=== PATIENT | female | born 1970 | race Caucasian/White ===

== ENCOUNTER 2016-05-12 12:34 | Inpatient (IN) | payer OTHER ==
[~2016-05-12] VITALS: Ht 160 cm; Wt 67.0 kg
[~2016-05-12 12:34] MED LIST: AMOX-351 PO; CETI1TAB14 PO; FLUO40CA7 PO
--- OUTSIDE RECORDS SUMMARY | 2016-05-12 12:38 | XMS REPORT | Continuity of Care Document ---
Author Author [facility] Organization [facility] Address Unknown Phone Unavailable Support Name Relationship Address Phone BIJAL KENNEDY APRN Caregiver [address] [place] [address] Unavailable TATO WALLACE II, MD Caregiver [address] GARCIA [address] [place] [id number] Unavailable CARLA VILLARREAL Next Of Kin [address] [place] [address] Insurance Providers Guarantor Jared Villarreal Address [address] [place] [address] Email DENIED/NO TO PT PORTAL Payer [facility] Policy Number [id number] Subscriber's Name Carla Villarreal Alicia Relationship 01 Spouse Group Number [id number] Chief Complaint and Reason for Visit Chief Complaint Cough,Fever,Flu,URI Reason for Visit Acute sinusitis Problems Active Problems Medical Problem Onset Date Status Headache Unknown Acute Past Problems Medical Problem Onset Date Acute sinusitis Unknown Diarrhea in adult patient Unknown Nausea Unknown Viral gastroenteritis Unknown Medications Current Home Medications Medication Dose Units Route Directions Days Qty Instructions Start Date Amoxicillin/Potassium Clav (Augmentin 875-125 Tablet) 1 Each Tablet 1 Tab Oral Twice A Day 7 Tablet TAKE WITH MEALS Supervising physician Dr. Lennox Kumar [facility] [address] 05/07/16 Cetirizine Hcl/Pseudoephedrine (Zyrtec-D Tablet) 1 Each Tab.er.12h 1 Tab Oral Daily 11/19/14 Fluoxetine Hcl (Prozac) 40 Mg Capsule 1 Cap Oral Daily 11/19/14 Social History Social History Problem Response Recorded Date/Time Onset Date Status Hx Substance Use No 11/19/2014 8:45pm Not Applicable Not Applicable Hx Alcohol Use No 11/19/2014 8:45pm Not Applicable Not Applicable Hospital Discharge Instructions No hospital discharge instructions. Plan of Care Discharge Date 05/07/16 3:13pm Disposition 01 DISCHARGED HOME, SELF-CARE Condition at Discharge Stable Instructions/Education Provided Sinusitis (ED) Prescriptions See Medication Section Referrals TATO WALLACE II, MD Address: [address] [place] [id number] Additional Instructions/Education Sudafed as directed on the box Flonase nasal spray one spray in each nostril daily Functional Status No functional status results. Allergies, Adverse Reactions, Alerts No known allergies. Immunizations Query Response on File Recorded Date/Time DTaP Vaccine History YES 05/07/16 2:51pm Influenza Vaccine Hx NO 05/07/16 2:51pm Tetanus Diptheria Vaccine History YES 05/07/16 2:51pm Vital Signs Acute Vital Signs Vital Response Date/Time Temperature (Fahrenheit) 99.0 deg F (96.8 - 99.1) 05/07/2016 2:46pm Temperature (Calculated Celsius) 37.66182 degrees C (36.0 - 37.3) 05/07/2016 2:46pm Pulse Rate (adult) 93 bpm (60 - 100) 05/07/2016 2:46pm Respiratory Rate 20 breaths/min (10 - 20) 05/07/2016 2:46pm O2 Sat by Pulse Oximetry 99 % (90 - 100) 05/07/2016 2:46pm Blood Pressure 107/70 mm Hg 05/07/2016 2:46pm Height (Inches) 64.50 inches 05/07/2016 2:46pm Weight (Kilograms) 64.400 kg 05/07/2016 2:46pm Body Mass Index (BMI) 23.0 05/07/2016 2:46pm Results Laboratory Results Test Name Result Units Flags Reference Collection Date/Time Result Date/ Time Comments Influenza Type A Antigen NEGATIVE NEGATIVE 04/02/2016 1:14pm 2016 3:44pm Negative for Flu A protein antigen. Assay sensitivity is 90%. Influenza Type B Antigen NEGATIVE NEGATIVE 04/02/2016 1:14pm 2016 3:44pm Negative for Flu B protein antigen. Assay sensitivity is 90%. Procedures No known history of procedures. Encounters Encounter Location Arrival/Admit Date Discharge/Depart Date Attending Provider Departed Emergency Room [facility] 05/07/16 2:17pm 05/07/16 3: 13pm BIJAL KENNEDY APRN Departed Emergency Room [facility] 04/02/16 12:55pm 04/02/16 1: 32pm JOYCE MANUEL APRN Recent Diagnosis
--- NOTE | 2016-05-12 13:00 | NUR ---
STATUS PATIENT STATES "MY HANDS FEEL FUNNY". PATIENT IS NOTED TO BE BREATHING AT 25 BREATHS PER MIN AND REAL DEEP. PATIENT IS EDUCATED ON SLOWING DOWN BREATHING.
[2016-05-12] MEDS ORDERED: ONDA-55 PO (13:04)
[2016-05-12] MEDS ORDERED: BENZ200C36 PO (13:04)
[2016-05-12] MEDS ORDERED: TRIA10.82 EA NOSTRIL (13:06)
[2016-05-12] MEDS ORDERED: PSEU120T64 PO (13:06)
--- NOTE | 2016-05-12 13:27 | NUR ---
STATUS PATIENT VOMITED 150 ML OF YELLOW BILE. STATES IT RELIEVES THE PAIN SOMEWHAT. EDUCATED PATIENT ON WAIT TIMES.
--- NOTE | 2016-05-12 13:44 | NUR ---
PROVIDER DR NICK IN TO SEE PATIENT.
[2016-05-12] MEDS ORDERED: NORMAL SALINE 1,000 ML IV ONE (13:53)
[2016-05-12] MEDS ORDERED: G.I. COCKTAIL 30ml PO ONE (14:00)
[2016-05-12] MEDS ORDERED: KETOROLAC 30mg/ml INJECTION IV ONE (14:00)
[2016-05-12] MEDS ORDERED: ONDANSETRON 4mg/2ml INJECTION IV ONE (14:00)
[2016-05-12] MEDS ORDERED: FAMOTIDINE 20 MG TABLET PO ONE (14:00)
[2016-05-12 14:12] LABS: BASOPHILS # (AUTO) 0.1 T/MM3 (0-0.2); BASOPHILS % (AUTO) 0.4 % (0-2); EOSINOPHILS % (AUTO) 0.3 % (0-4); HCT - HEMATOCRIT 41.6 % (36-46); HGB - HEMOGLOBIN 14.2 GM/DL (12-16); IMMATURE GRANULOCYTE # (AUTO) 0.03 T/MM3 (0.00-0.03); IMMATURE GRANULOCYTE % (AUTO) 0.2 % (0.0-0.5); LYMPHOCYTES # (AUTO) 1.5 T/MM3 (1-4.8); LYMPHOCYTES % (AUTO) 11.5 % (23-45); MEAN CORPUSCULAR HGB 30.5 UUG (26-34); MEAN CORPUSCULAR HGB CONC(MCHC 34.1 GM/DL (31-37); MEAN CORPUSCULAR VOLUME 89.3 UM3 (80-100); MEAN PLATELET VOLUME 8.6 UM3 (9.4-12.4); MONOCYTES # (AUTO) 0.7 T/MM3 (0-0.8); MONOCYTES % (AUTO) 5.6 % (0-9.0); NEUTROPHILS #(AUTO)-ABSOLUTE 10.3 T/MM3 (1.8-7.7); RED BLOOD COUNT 4.66 M/MM3 (4.00-5.20); WBC - WHITE BLOOD COUNT 12.6 T/MM3 (4.5-11.0)
--- NOTE | 2016-05-12 14:13 | NUR ---
TO XRAY PER CART.
[2016-05-12 14:19] LABS: ALBUMIN/GLOBULIN RATIO 1.1 RATIO (1.1-2.2); ALKALINE PHOSPHATASE 109 U/L (38-126); ALT (SGPT) 25 U/L (9-52); ANION GAP 15 MEQ/L (5-15); AST (SGOT) 19 U/L (14-36); BUN/CREATININE RATIO 13 RATIO (6-26); CALCIUM 9.4 MG/DL (8.4-10.2); CHLORIDE 105 MEQ/L (98-107); CO2 - CARBON DIOXIDE 23 MEQ/L (22-30); CREATININE 0.6 MG/DL (0.7-1.2); GLOMERULAR FILTRATION RATE 109; GLUCOSE 104 MG/DL (65-110); LIPASE 119 U/L (23-300); SODIUM 143 MEQ/L (134-144); TOTAL PROTEIN 7.5 G/DL (6.3-8.2)
--- NOTE | 2016-05-12 14:27 | NUR ---
BACK FROM XRAY
[2016-05-12] MEDS ORDERED: FAMOTIDINE 20 MG in NORMAL SALINE 50 ML IV ONE (14:45)
--- NOTE | 2016-05-12 14:45 | DI ---
EXAM: KUB W/UPRIGHT COMPARISON: None available. HISTORY: ITS.REASON: abd pain . FINDINGS: The lung bases are clear. The visceral knowledge are unremarkable. Moderate amount stool and air seen throughout the colon. The gaseous distention of multiple loops of what may be large and small bowel. Surgical clips are seen in the right upper quadrant likely from prior cholecystectomy. Calcification is seen projecting over the right bladder which may represent a phlebolith. IMPRESSION: 1. Moderate amount stool seen within the colon with some air-filled loops of nondilated large and small bowel which may represent an ileus. Clinical correlation is suggested. 2. Two mm calcification is seen projecting over the right bladder which may represent a phlebolith rather than a distal ureteral stone. LOCATION OF DICTATION: [facility] [place] .
[2016-05-12 15:01] LABS: BLOOD, URINE NEGATIVE (NEGATIVE); COLOR,URINE YELLOW (YELLOW); LEUKOCYTE ESTERASE ,URINE NEGATIVE (NEGATIVE); NITRITE,URINE NEGATIVE (NEGATIVE); UROBILINOGEN,URINE 0.2 EU/DL (NORMAL)
[2016-05-12] MEDS ORDERED: SALINE FLUSH 10ml SYRINGE ONE (15:18)
[2016-05-12] MEDS ORDERED: IOHEXOL 300 MG/ML 75ml INJECTION ONE (15:18)
[2016-05-12] MEDS ORDERED: NORMAL SALINE 100 ML ONE (15:18)
--- NOTE | 2016-05-12 16:06 | DI ---
Indication: ITS.REASON: vomiting, abd pain, elevated wbc PROCEDURE: CT ABD/PELVIS W/CONTRAST ONLY: Encounter: Initial Comparison: None Technique: Axial CT images were performed through the abdomen and pelvis after the administration of intravenous contrast. Coronal and sagittal two-dimensional reformats. Automated Exposure Control and Iterative Reconstruction dose reducing techniques were utilized. Contrast: Omnipaque 300 74 mL Findings: The lung bases are clear. The liver is normal. Gallbladder is surgically absent. The spleen, pancreas and adrenal glands are within normal limits. The kidneys are normal. No obvious abdominal or pelvic lymphadenopathy. Bladder is unremarkable. Uterus is grossly normal. Small to moderate amount of free pelvic fluid. Colon is decompressed. There are dilated fluid-filled bowel loops seen in the abdomen and pelvis measuring up to 3.5 cm in diameter. There is transition to nondilated small bowel in the ileum of the right abdomen best seen on coronal image #16 with a somewhat swirling appearance of the bowel loops. Impression: High-grade or complete small bowel obstruction in the distal ileum that could be due to an internal hernia or adhesion. Surgical consultation is recommended. .
--- NOTE | 2016-05-12 16:06 | NUR ---
STATUS PATIENT IS RESTING IN BED. PAIN IS RATED "3/10 AND IS BEARABLE". NO COMPLAINTS NOTED. CALL LIGHT WITHIN REACH.
--- NOTE | 2016-05-12 16:35 | NUR ---
PROVIDER DR NICK IN WITH DISPOSITION.
[2016-05-12] MEDS ORDERED: MORPHINE SULFATE 2 MG SYRINGE IV ONE (16:45)
--- NOTE | 2016-05-12 16:51 | ERPDOC ---
Departure Disposition Decision Date: May 12, 2016 Disposition Decision Time: 16:53 Disposition: 02 TO [facility] Impression Impression Impression: Primary Impression: Small bowel obstruction Additional Impression: Dehydration Severity: Severe Condition: Stable Seen By: Physician only Referrals: TATO WALLACE II, MD (Family) Problems/Meds/Labs Reviewed?: Yes Medications reviewed and manag: Yes Follow up care ordered?: Yes Mental Status: Alert, Oriented HPI - Abdominal Pain General Chief Complaint: Abdominal Pain Stated Complaint: STOMACHE PAINS RADIATES TO BACK/VOMITNG Time Seen by Provider: 13:41 HPI - Abdominal Pain Initial Comments 45-year-old female with 3 days of vomiting. She has had abdominal pain building for a few days before that. Rates her pain as 8 out of 10 today. Has not had fever, states pain from right back around to right lower abdomen. Vomited multiple times today, unable to keep liquids down. Last meal was last night, incomplete and she vomited. Last fluid was prior to coming to ER today, approximately 4 hours ago. She has had gallbladder and surgery. Gallbladder was in 1992. She is uncertain of the physician. Allergies: Coded Allergies: No Known Allergies (Unverified , 05/12/16) Past History Past Medical History Neurological: headaches, migraines Psychological: anxiety Surgical History General: gallbladder Reproductive/: D&C, , tubal ligation Social History Substance Use Type: does not use Alcohol Intake: none Sexuality: male partner Record Review Pertinent history updated: Yes Review of Systems GI Upper Abdomen: see HPI Lower Abdomen: see HPI All other Systems All Other Systems: Reviewed and Negative Physical Exam General General Nourishment: well nourished, well developed, appears stated age Distress Description Patient is lying with her head on the foot of the bed on initial exam. She complains of right lower abdominal pain Vitals and Pain First Documented Vital Signs Date Time Temp Pulse Resp B/P Pulse Ox O2 Delivery O2 Flow Rate FiO2 05/12/16 12:35 97.8 77 16 150/67 99 Room Air Weight: Kilograms: 63.750 Height (feet): 5 Height (inches): 3.00 Triage Pain Scale: Normal Exams: Head: Normocephalic w/o trauma Neck: Full range of motion, without adenopathy, JVD, bruits or thyromegaly Chest/Resp: Clear all resendez, with good airflow, and symmetry bilaterally CV: Regular rate and rhythm, without murmur or gallop, Pulses 2+ all extremities, capillary refill, <2 seconds all ext., no pedal edema noted Neurologic: Patient is alert, and oriented, cranial nerves, motor/sensory/ cerebellar, exams w/o gross deficits, to observation Psychiatric: Patient exhibits, appropriate attention, emotion and affect Abdomen (brief) Comments Bowel sounds slightly hyperactive, slightly distended abdomen. No masses palpable. Tender to palpation right lower quadrant. Differential Diagnoses Considering: Appendicitis, Biliary Colic, Bowel Obstruction, Constipation, Crohn's, Diverticulitis, Gastroenteritis, GI Bleed, Ileus, Pancreatitis, Pyelonephritis, Ulcer, Ulcerative Colitis, UTI, Volvulus Progress Results/Orders Orders Procedure Category Date Status Time Iv Lock (Ed Only) EDM 05/12/16 Transmitted 13:53 Cbc W/Auto LAB 05/12/16 Complete Diff-Reflex Manual 13:53 Cmp - Comprehensive LAB 05/12/16 Complete Metabolic 13:53 Lipase LAB 05/12/16 Complete 13:53 Ua, Dip Wreflex LAB 05/12/16 Complete Microsc & Power Cleaner Operator 13:53 Kub W/Upright RAD 05/12/16 Resulted 13:53 Normal Saline (Normal PHA 05/12/16 Complete Saline Iv) 13:53 Ondansetron Inj PHA 05/12/16 Complete (Zofran) 14:00 G.I. Cocktail PHA 05/12/16 Complete (/Maalox/Lidocaine 14:00 Famotidine (Pepcid) PHA 05/12/16 Complete 14:00 Ketorolac (Toradol) PHA 05/12/16 Complete 14:00 Famotidine (Pepcid 20 PHA 05/12/16 Complete Mg Inj.) 14:45 Ct Abd/Pelvis CT 05/12/16 Resulted W/Contrast Only 15:12 Iohexol (Omnipaque) PHA 05/12/16 Complete 15:18 Normal Saline (Ns) PHA 05/12/16 Complete 15:18 Saline Flush (Iv PHA 05/12/16 Complete Flush) 15:18 Morphine Sulfate PHA 05/12/16 Complete (Morphine) 16:45 Npo Now FRANCISCO 05/12/16 In Process 16:38 Npo: Nothing By Mouth DIET 05/12/[address] In Facility: ED ADM 05/12/16 Transmitted 16:38 Lab Results Laboratory Tests Test 05/12/16 14:06 05/12/16 14:44 White Blood Count 12.6T/MM3 Red Blood Count 4.66M/MM3 Hemoglobin 14.2GM/DL Hematocrit 41.6% Mean Corpuscular Volume 89.3UM3 Mean Corpuscular Hemoglobin 30.5UUG Mean Corpuscular Hemoglobin Concent 34.1GM/DL RDW Standard Deviation 39.6FL Platelet Count 587T/MM3 Mean Platelet Volume 8.6UM3 Immature Granulocyte % (Auto) 0.2% Neutrophils (%) (Auto) 82.0% Lymphocytes (%) (Auto) 11.5% Monocytes (%) (Auto) 5.6% Eosinophils (%) (Auto) 0.3% Basophils (%) (Auto) 0.4% Absolute Immature Granulocyte (auto 0.03T/MM3 Absolute Neutrophils (auto) 10.3T/MM3 Absolute Lymphocytes (auto) 1.5T/MM3 Absolute Monocytes (auto) 0.7T/MM3 Absolute Eosinophils (auto) 0.0T/MM3 Absolute Basophils (auto) 0.1T/MM3 Turbidity < 20 Sodium Level 143MEQ/L Potassium Level 4.0MEQ/L Chloride Level 105MEQ/L Carbon Dioxide Level 23MEQ/L Anion Gap 15MEQ/L Blood Urea Nitrogen 8.0MG/DL Creatinine 0.6MG/DL Glomerular Filtration Rate Calc 109 BUN/Creatinine Ratio 13RATIO Glucose Level 104MG/DL Calculated Osmolality 273MOSM/KG Calcium Level 9.4MG/DL Total Bilirubin 0.70MG/DL Icterus Index < 2 Aspartate Amino Transf (AST/SGOT) 19U/L Alanine Aminotransferase (ALT/SGPT) 25U/L Alkaline Phosphatase 109U/L Total Protein 7.5G/DL Albumin 4.0G/DL Globulin 3.5G/DL Albumin/Globulin Ratio 1.1RATIO Lipase 119U/L Chemistry Specimen Hemolysis < 15 Urine Collection Type Voided-not cc-midstr Urine Color Yellow Urine Turbidity Sl cloudy Urine pH 8.5 Urine Specific [place] 1.015 Urine Protein Negative Urine Glucose (UA) Negative Urine Ketones 3+ Urine Blood Negative Urine Nitrite Negative Urine Bilirubin Negative Urine Urobilinogen 0.2EU/DL Urine Leukocyte Esterase Negative Urinalysis Comment Microscopic not ind. Medications Current ED Medications Sodium Chloride (Normal Saline IV) 1,000 ml @ 1,000 mls/hr Q1H ONCE IV Last administered on 05/12/16 14:08; Start 05/12/16 at 13:53; Stop 05/12/16 at 14:52 ; Status DC Ondansetron HCl (Zofran) 4 mg O ONCE IV Last administered on 05/12/16 14:08; Start 05/12/16 at 14:00; Stop 05/12/16 at 14:01; Status DC Pharmacy Profile Note (/Maalox/ Lidocaine Soln) 30 ml O ONCE PO Last administered on 05/12/16 14:43; Start 05/12/16 at 14:00; Stop 05/12/16 at 14:01 ; Status DC Famotidine (Pepcid) 20 mg O ONCE PO ; Start 05/12/16 at 14:00; Stop 05/12/16 at 14:34; Status DC Ketorolac Tromethamine 30 mg 30 mg O ONCE IV Last administered on 05/12/16 14 :08; Start 05/12/16 at 14:00; Stop 05/12/16 at 14:01; Status DC Famotidine/Sodium Chloride (PEPCID 20 mg INJ./NS) 52 ml @ 100 mls/hr O ONCE IV Last administered on 05/12/16 14:32; Start 05/12/16 at 14:45; Stop at 15:16; Status DC Iohexol 1 bottle 1 bottle STK-MED ONCE .ROUTE ; Start 05/12/16 at 15:18; Stop at 15:19; Status DC Sodium Chloride (NS) 100 ml @ As Directed STK-MED ONCE .ROUTE ; Start 05/12/16 at 15:18; Stop 05/12/16 at 15:19; Status DC Sodium Chloride (Iv Flush) 10 ml STK-MED ONCE .ROUTE ; Start 05/12/16 at 15:18; Stop 05/12/16 at 15:19; Status DC Morphine Sulfate (Morphine) 2 mg O ONCE IV ; Start 05/12/16 at 16:45; Stop at 16:46; Status DC Progress Progress Elevated white count 12.6 with left shift. Patient has high-grade small bowel obstruction on CT abdomen. Spoke with Dr. Grullon and she will be admitted to the surgical service with NG tube, nothing by mouth, IV fluids. I did give her 4 mg of Zofran and 30 mg of Toradol IV initially on evaluation in the ED. Just gave her another 2 mg of morphine IV. LIBIA NICK MD May 12, 2016 16:51
[2016-05-12 18:02] VITALS: BP 128/73; PULSE 65; RESP 18; TEMP 98.2; O2SAT 100
[2016-05-12] MEDS ORDERED: SORE THROAT SPRAY 20ml PO PRN ×2 (18:30→19:00)
--- NOTE | 2016-05-12 18:30 | NUR ---
NG tube placed NG placed at this time. 16 belarusian to Low Intermittent Suction applied. Dr. Grullon in room at this time during placement. Pt tolerated procedure poorly, but NG was placed in one try. 100 cc gastric contents removed from stomach immediately. pt continued to cough and gag but placement was confirmed via auscultation. XRAY ordered for confirmation. Will continue to monitor.
[2016-05-12 18:40] VITALS: Ht 160 cm; Wt 67.0 kg
--- NOTE | 2016-05-12 19:15 | NUR ---
Admit Pt admitted to room 109 at this time. Pt co nausea and stomach pain but that the pain medication helps. pt states feeling highly anxious for NG tube placement. Will continue to monitor.
[2016-05-12] MEDS: HYDROMORPHONE 2mg/ml INJECTION IV PRN (19:21)
[2016-05-12] MEDS: LR 1,000 ML IV SCH (19:22)
--- NOTE | 2016-05-12 21:53 | NUR ---
NG NG tube advanced [address] Grullon's order. Pt tolerated well. Immediately saw return of green mucous fluid.
[2016-05-13] VITALS (8 sets, daily range): BP systolic 108–122; BP diastolic 63–77; PULSE 69–89; RESP 14–16; TEMP 96.2–97.9; O2SAT 95–99
[2016-05-13] MEDS: ONDANSETRON 4mg/2ml INJECTION IV PRN (00:14)
[2016-05-13] MEDS: KETOROLAC 30mg/ml INJECTION IV PRN ×3 (00:20→19:12)
[2016-05-13] MEDS: HYDROMORPHONE 2mg/ml INJECTION IV PRN ×5 (00:46→23:55)
[2016-05-13] MEDS: LR 1,000 ML IV SCH ×3 (02:56→13:05)
[2016-05-13 05:40] LABS: BASOPHILS # (AUTO) 0.1 T/MM3 (0-0.2); BASOPHILS % (AUTO) 0.5 % (0-2); EOSINOPHILS # (AUTO) 0.1 T/MM3 (0-0.5); EOSINOPHILS % (AUTO) 0.8 % (0-4); HCT - HEMATOCRIT 39.2 % (36-46); IMMATURE GRANULOCYTE # (AUTO) 0.01 T/MM3 (0.00-0.03); IMMATURE GRANULOCYTE % (AUTO) 0.1 % (0.0-0.5); LYMPHOCYTES # (AUTO) 1.7 T/MM3 (1-4.8); LYMPHOCYTES % (AUTO) 17.3 % (23-45); MEAN CORPUSCULAR HGB 30.5 UUG (26-34); MEAN CORPUSCULAR HGB CONC(MCHC 33.2 GM/DL (31-37); MEAN PLATELET VOLUME 8.8 UM3 (9.4-12.4); MONOCYTES # (AUTO) 0.7 T/MM3 (0-0.8); MONOCYTES % (AUTO) 6.9 % (0-9.0); NEUTROPHILS #(AUTO)-ABSOLUTE 7.4 T/MM3 (1.8-7.7); NEUTROPHILS % (AUTO) 74.4 % (33-66); RED BLOOD COUNT 4.26 M/MM3 (4.00-5.20); WBC - WHITE BLOOD COUNT 9.9 T/MM3 (4.5-11.0)
[2016-05-13 05:42] LABS: ALBUMIN 3.5 G/DL (3.5-5.0); ALBUMIN/GLOBULIN RATIO 1.1 RATIO (1.1-2.2); ALKALINE PHOSPHATASE 96 U/L (38-126); ALT (SGPT) 29 U/L (9-52); ANION GAP 8 MEQ/L (5-15); AST (SGOT) 19 U/L (14-36); BUN/CREATININE RATIO 16 RATIO (6-26); CALCIUM 9.1 MG/DL (8.4-10.2); CHLORIDE 106 MEQ/L (98-107); CO2 - CARBON DIOXIDE 29 MEQ/L (22-30); CREATININE 0.7 MG/DL (0.7-1.2); GLOMERULAR FILTRATION RATE 91; GLUCOSE 99 MG/DL (65-110); POTASSIUM 4.3 MEQ/L (3.6-5); SODIUM 143 MEQ/L (134-144); TOTAL PROTEIN 6.7 G/DL (6.3-8.2)
[2016-05-13] MEDS: METOCLOPRAMIDE 10mg/2ml INJECTION IV PRN ×2 (05:43→16:17)
--- NOTE | 2016-05-13 06:31 | NUR ---
Summary Pt has been resting in bed. Pt rated pain a 5/10, PRN IV Dilaudid was given by Aurea Cooper RN. VS have been stable on RA. Pt denies nausea.
[2016-05-13] MEDS: NICOTINE 21 MG PATCH TD SCH (09:00)
--- NOTE | 2016-05-13 10:22 | HPF ---
DATE OF VISIT 05/12/2016 REASON FOR ADMISSION Small bowel obstruction. HISTORY OF PRESENT ILLNESS Joi is a 45-year-old female patient of Dr. Avila. Last Sunday or Sunday she had developed some abdominal pain. She thought her pain was coming from the antibiotics that she was taking for her sinus infection. She thought she may have also developed some constipation from the antibiotics because she stopped having bowel movements or passing flatus. She described her abdominal pain as sharp, dull, and achy. It was up to 9 out of 10 in severity. She came to the emergency department for evaluation since she could not get in to see Dr. Avila. She has had nausea and had vomiting in the emergency department. A CT scan was done after a KUB had been unrevealing. The CT scan had shown dilated fluid-filled loops of bowel up to 3.5 cm. There was a visualized transition in the distal ileum and decompressed colon. Given the abnormal findings on CT it was felt she needed hospital admission. PAST MEDICAL HISTORY 1. Migraine headaches. 2. Anxiety. 3. Hypoglycemia. PAST SURGICAL HISTORY 1. Tonsillectomy and adenoidectomy. 2. section x 4. 3. Dilation and curettage x 4. 4. Cerclages x 2. 5. Tubal ligation. 6. Hemorrhoid banding. 7. Laparoscopic cholecystectomy. ALLERGIES No known drug allergies. MEDICATIONS The patient's home medications were reviewed. See the admission medical reconciliation. SOCIAL HISTORY The patient is . She has four children. She is a pack-to oumr-pjo-g-half-day current smoker. She denies alcohol or illicit drug use. FAMILY HISTORY Father - myocardial infarction, hypertension, pacemaker placement, diverticulitis. Mother - healthy. Brother - diverticulitis. REVIEW OF SYSTEMS 10-point review of systems was negative except for History of Present Illness and the following: GENERAL: She reports low-grade fevers this week. HEENT: She has had sinus drainage from her recent sinus infection. RESPIRATORY: She has had cough. PSYCHIATRIC: She has anxiety and history of panic attacks. LABORATORY DATA White blood cell count was 12.6 and platelet count was 587,000. Comprehensive metabolic panel was normal. IMAGING CT scan of the abdomen and pelvis along with KUB were both personally reviewed by me. See History of Present Illness for findings. There was some abnormality in the area of transition but no definite mesenteric swirling or evidence of closed-loop internal hernia. PHYSICAL EXAMINATION Vital signs: Temperature 98.2, pulse 65, blood pressure 128/73, respiratory 18, oxygen saturation 100% on room air. GENERAL: The patient is awake and alert, in no acute distress. HEENT: Sclerae clear. Extraocular muscles intact. NECK: Supple with a midline trachea. No lymphadenopathy or thyromegaly are noted. HEART: Regular rate and rhythm. LUNGS: Clear to auscultation bilaterally. ABDOMEN: Soft, mildly tender diffusely with no guarding or rebound noted. No masses are noted. EXTREMITIES: No clubbing, cyanosis or edema. NEUROLOGIC: Cranial nerves II-XII are grossly intact. PSYCHIATRIC: Normal mood and affect. IMPRESSION 1. Small bowel obstruction - likely adhesive in nature. 2. Recent sinus infection. 3. Anxiety. PLAN 1. Given the patient's fairly benign abdominal exam, I would like to observe her bowel obstruction and see if she will have improvement with bowel rest and NG tube decompression. 2. NG tube was placed by the nurse recently. I will check a chest x-ray to confirm placement. 2. Continue with IV fluids and bowel rest. 4. Recheck lab in the morning and follow NG tube output. PATIENT EDUCATION I did discuss the diagnosis of bowel obstruction and how adhesions could cause the bowel obstruction. I explained that there was a possibility of spontaneous resolution of the bowel obstruction with conservative management. She was willing to try NG tube decompression instead of surgical management for now. DACIA
--- NOTE | 2016-05-13 11:12 | DI ---
Indication: ITS.REASON: Check NGT placement PROCEDURE: CHEST 1 VIEW: Encounter: Initial Comparison: Abdominal CT from the same date Findings: Nasogastric tube has been placed with the tip projecting over the body of the stomach and the proximal side port at the level of the GE junction. Lung resendez are not evaluated due to the exposure settings. Impression: Nasogastric tube tip projects over the stomach. .
--- NOTE | 2016-05-13 11:35 | NUR ---
NICK CM VISITED PT/SPOUSE. CM EXPLAINED ROLE AND PROVIDED CONTACT INFORMATION. PT PLANS TO RETURN HOME AT TIME OF D/C FROM [facility]. PT DENIES NEEDS STATES SPOUSE WILL ASSIST HER WITH NEEDS. PT IS AWARE TO CONTACT CM IF NEEDS ARISE.
[2016-05-13] MEDS: AMPICILLIN/SULBACTAM 3 G in NORMAL SALINE 100 ML IV SCH ×2 (16:07→22:04)
--- NOTE | 2016-05-13 18:16 | NUR ---
SHIFT SUMMARY PATIENT IS ALERT AND ORIENTED X3. PATIENT VITALS ARE STABLE AND PATIENT IS ON ROOM AIR. PATIENT HAS REQUIRED PRN IV PAIN MEDICATION THROUGHOUT SHIFT. NG IS PATENT AND SUCTION IS ON LOW INTERMITTENT. PATIENT HAS ALSO REQUIRED REGLAN 1X DURING SHIFT. PATIENT IS UP WITH 1X ASSIST, AND GB. PATIENT DENIES CP, NAUSEA, AND SOA. FAMILY HAS BEEN AT BEDSIDE. WILL CONTINUE TO MONITOR.
[2016-05-14] MEDS: LR 1,000 ML IV SCH ×3 (02:33→22:10)
[2016-05-14] MEDS: AMPICILLIN/SULBACTAM 3 G in NORMAL SALINE 100 ML IV SCH ×4 (03:43→20:50)
[2016-05-14] MEDS: KETOROLAC 30mg/ml INJECTION IV PRN ×4 (04:08→23:44)
[2016-05-14 04:28] VITALS: BP 105/66; PULSE 80; RESP 16; TEMP 96.8; O2SAT 96
--- NOTE | 2016-05-14 04:47 | NUR ---
Chart Check 24 hour chart check completed
--- NOTE | 2016-05-14 04:48 | NUR ---
STATUS PATIENT ALERT AND ORIENTEDX3. PATIENT C/O PAIN AT ABD,RATED 6-8/10. PRN DILAUDID AND TORADOL WAS GIVEN. ON ROOM AIR .DENIES CHEST PAIN,SOA,OR N/V. NG IS PATENT AND SUCTION IS ON LOW INTERMITTENT.CHANGED NEW DRESSING AT LAC IV SITE. IV RUNNING WELL THROUGH LAC IV SITE.PATIENT AMBULATED TO BATHROOM WITH ONE STANDBY ASSIST. NPO .CONTINUE TO MONITOR.
[2016-05-14] MEDS: HYDROMORPHONE 2mg/ml INJECTION IV PRN ×3 (08:25→19:31)
[2016-05-14 08:37] VITALS: PULSE 80; RESP 16
[2016-05-14 08:41] VITALS: BP 108/69; PULSE 79; RESP 16; TEMP 97.4; O2SAT 96
[2016-05-14] MEDS: NICOTINE PATCH REMOVAL TD SCH (09:00)
[2016-05-14] MEDS: NICOTINE 21 MG PATCH TD SCH (09:37)
--- NOTE | 2016-05-14 12:26 | PNF ---
DATE 05/13/16 REASON FOR VISIT Follow up bowel obstruction. SUBJECTIVE Nia says that her abdominal pain is a little bit better but she is still requiring pain medication. She has not had any bowel movements or been passing flatus. Her NG tube has had 250 ml out since placement last evening. She does feel like after advancing the tube her NG tube has been bothering her less. OBJECTIVE VITAL SIGNS: Temperature sure 97.9, pulse 89, blood pressure 122/69, respiratory rate 16, oxygen saturation 97% on room air. GENERAL: The patient is awake and alert in no acute distress. ABDOMEN: Soft, minimally tender diffusely with no guarding or rebound noted. LABORATORY DATA White blood cell count has decreased to 9.9 with 74% neutrophils. Platelet count is 591. ASSESSMENT 1. Hospital day #2 with small bowel obstruction. Her pain seems to have improved slightly but there is ongoing clinical evidence of obstruction. 2. Sinus infection - present on admission. PLAN 1. Continue NG tube decompression, IV fluids, and bowel rest to see if her bowel obstruction will resolve spontaneously over the next 48 hours. 2. Since she is unable to take oral intake I am starting her on Unasyn three grams IV q.6h. for her sinus infection. MTDD
[2016-05-14 16:16] VITALS: BP 125/70; PULSE 83; RESP 16; TEMP 96.2; O2SAT 95
--- NOTE | 2016-05-14 18:25 | NUR ---
PROGRESS NOTE PT IS ALERT AND ORIENTED X3. VITAL SIGNS STABLE, ON RA. PT HAS NG PLACED WITH LOW WALL, INTERMITTENT SUCTIONING ON. PT DIET REMAINS NPO, MOUTH SWABS PROVIDED NEEDED. PT HAS LR RUNNING AT 125CC/HR THROUGH HER 20G IN HER UPPER LEFT ARM, WHICH IS COVERED WITH COBAN. THE PT HAS BEEN ON 2 WALKS IN THE HALLS THIS SHIFT. BOWEL SOUNDS ASCULTATED IN ALL 4 QUADRANTS, PT REPORTS SOME PASSING GAS THROUGHOUT THIS SHIFT. PT HAS REQUIRED SEVERAL PRN DOSES OF ID DILAUDID AND TORADOL. PT IS UP AD HELIO IN ROOM. NO CONCERNS NOTED AT THIS TIME, WILL CONTINUE TO MONITOR.
[2016-05-14] MEDS: NS 500 ML IV PRN (20:50)
[2016-05-14 23:24] VITALS: BP 138/79; PULSE 87; RESP 16; TEMP 97.1; O2SAT 94
[2016-05-15] VITALS (30 sets, daily range): BP systolic 102–132; BP diastolic 62–85; PULSE 68–91; RESP 14–20; TEMP 97.8–98.8; O2SAT 94–99
--- NOTE | 2016-05-15 01:22 | NUR ---
Chart Check 24 hour chart check completed
[2016-05-15] MEDS: LR 1,000 ML IV SCH ×3 (02:56→18:46)
[2016-05-15] MEDS: AMPICILLIN/SULBACTAM 3 G in NORMAL SALINE 100 ML IV SCH ×4 (03:01→20:05)
--- NOTE | 2016-05-15 05:05 | NUR ---
SHIFT SUMMARY PATIENT HAS BEEN ALERT AND ORIENTED X3 THIS SHIFT. VITAL SIGNS ARE STABLE ON ROOM AIR. PATIENT AMBULATES WELL WITH STAND BY. PATIENT HAS REPORTED SOME PAIN THIS SHIFT, WAS GIVEN A PRN DOSE OF TORADOL, AND HAS SLEPT WELL SINCE. PATIENT HAS REPORTED NOT NAUSEA OR VOMITING THIS SHIFT. WILL CONTINUE TO MONITOR.
[2016-05-15 05:25] LABS: BASOPHILS # (AUTO) 0.1 T/MM3 (0-0.2); BASOPHILS % (AUTO) 0.6 % (0-2); EOSINOPHILS # (AUTO) 0.2 T/MM3 (0-0.5); EOSINOPHILS % (AUTO) 1.8 % (0-4); HGB - HEMOGLOBIN 11.5 GM/DL (12-16); IMMATURE GRANULOCYTE # (AUTO) 0.01 T/MM3 (0.00-0.03); IMMATURE GRANULOCYTE % (AUTO) 0.1 % (0.0-0.5); LYMPHOCYTES # (AUTO) 1.4 T/MM3 (1-4.8); MEAN CORPUSCULAR HGB 30.6 UUG (26-34); MEAN CORPUSCULAR HGB CONC(MCHC 32.9 GM/DL (31-37); MEAN CORPUSCULAR VOLUME 93.1 UM3 (80-100); MEAN PLATELET VOLUME 9.3 UM3 (9.4-12.4); MONOCYTES # (AUTO) 0.8 T/MM3 (0-0.8); MONOCYTES % (AUTO) 8.3 % (0-9.0); NEUTROPHILS #(AUTO)-ABSOLUTE 6.6 T/MM3 (1.8-7.7); NEUTROPHILS % (AUTO) 73.2 % (33-66); RED BLOOD COUNT 3.76 M/MM3 (4.00-5.20)
[2016-05-15 05:33] LABS: ANION GAP 11 MEQ/L (5-15); BUN/CREATININE RATIO 15 RATIO (6-26); CALCIUM 8.2 MG/DL (8.4-10.2); CHLORIDE 107 MEQ/L (98-107); CO2 - CARBON DIOXIDE 22 MEQ/L (22-30); CREATININE 0.6 MG/DL (0.7-1.2); GLOMERULAR FILTRATION RATE 109; GLUCOSE 62 MG/DL (65-110); POTASSIUM 3.9 MEQ/L (3.6-5); SODIUM 140 MEQ/L (134-144)
[2016-05-15] MEDS: KETOROLAC 30mg/ml INJECTION IV PRN (06:31)
--- NOTE | 2016-05-15 07:50 | PNF ---
DATE OF VISIT 05/14/2016 REASON FOR VISIT Follow small bowel obstruction. SUBJECTIVE Joi says that she is feeling better today. She did pass three small amounts of flatus but she has not had a bowel movement. She has been tolerating the NG tube better. She has walked some. She feels like her pain has lessened. OBJECTIVE VITAL SIGNS: Temperature 96.2. Pulse 83. Blood pressure 125/70. Respiratory 16. Oxygen saturation 95% on room air. GENERAL: The patient is awake and alert in no acute distress. ABDOMEN: Soft, minimally tender. Her NG output has been 435 ml today. ASSESSMENT 1. Hospital day #3 with small bowel obstruction. Pain continues to improve slightly and she has had slight flatus. 2. Sinus infection - present on admission. PLAN 1. Continue bowel rest and NG tube decompression until tomorrow. 2. Reassess tomorrow with KUB and upright. 3. Recheck lab tomorrow. 4. Continue Unasyn while n.p.o. 5. I did discuss with Joi that if she was not showing increased bowel function tomorrow that we may have to consider exploration to try to look for the cause of her small bowel obstruction. She would still like to hold off on surgery if possible. DACIA
[2016-05-15] MEDS: NICOTINE 21 MG PATCH TD SCH (08:41)
--- NOTE | 2016-05-15 08:42 | DI ---
Indication: ITS.REASON: Follow bowel obstruction PROCEDURE: KUB W/UPRIGHT: Encounter: Initial Comparison: May 12, 2016 Findings: Densities which are presumably external to the patient projecting over the pelvis. Nasogastric tube projects over the stomach. Linear atelectasis in the right base. No free air identified. There are scattered nondifferential small bowel air-fluid levels and scattered colonic gas present to the level of the rectum. The degree of bowel distention is similar to the prior study with dilated small bowel loops measuring up to 5.3 cm in diameter in the left central abdomen. Impression: Dilated small bowel again concerning for small bowel obstruction. .
[2016-05-15] MEDS: NICOTINE PATCH REMOVAL TD SCH ×2 (08:47→14:15)
--- NOTE | 2016-05-15 09:13 | NUR ---
PROGRESS NOTE PT WALKED THE HALLS WITH HER SON, PT STABLE ON FEET, NO DIZZINESS NOTED. WILL CONTINUE TO MONITOR.
--- NOTE | 2016-05-15 10:35 | NUR ---
CM CM TO VISIT WITH PATIENT, SPOUSE AND CHILDREN ARE PRESENT. SHE DENIES DISCHARGE NEEDS. PLANS TO RETURN HOME. UPDATED CM CONTACT INFORMATION GIVEN. Addendum: 05/15/16 at 1037 by VIRGINIE EATON RN Amended: Links added.
[2016-05-15] MEDS: HYDROMORPHONE 2mg/ml INJECTION IV PRN ×5 (11:56→23:01)
--- NOTE | 2016-05-15 13:34 | PNF ---
DATE OF VISIT 05/15/2016 REASON FOR VISIT Follow bowel obstruction. SUBJECTIVE Joi says that she feels slightly better but is continuing to have some abdominal pain. She has been passing minimal flatus but has not had a bowel movement. She has been ambulating. OBJECTIVE VITAL SIGNS: Temperature 97.8. Pulse 90. Blood pressure 131/62. Respiratory rate 16. Oxygen saturation 97% on room air. GENERAL: The patient is awake, alert, in no acute distress. ABDOMEN: Soft, distended, minimally tender. NG output--continues to have some bilious output. IMAGING KUB and upright were personally reviewed by me. There continues to be ongoing dilated small bowel loops with air-fluid levels. LABORATORY DATA White blood cell count is normal at 9.0 today. ASSESSMENT 1. Small bowel obstruction - likely adhesive in nature. Her bowel obstruction continues without any significant clinical improvement. Radiographically, she still has significant dilatation if not worsening of the dilatation. 2. Sinus infection - present on admission. PLAN 1. Unfortunately I Joi has not managed to resolve her bowel obstruction with conservative management via NG tube decompression and bowel rest. I do think that she would be best served by surgical exploration. 2. I will make arrangements with the operating room to schedule her for exploratory laparotomy with possible small bowel resection later today. Hopefully she only requires adhesiolysis. PATIENT EDUCATION The details, risks and benefits of surgery were discussed with the patient and her . The discussion included, but was not limited to, bleeding, infection, injury to intra-abdominal contents, possible need for bowel resection, possible future adhesions and small bowel obstruction, and complications of anesthesia. Her questions about surgery were answered and she did agree with proceeding to the operating room today. DACIA
--- NOTE | 2016-05-15 14:17 | NUR ---
PROGRESS NOTE PT HAS BEEN RESTING IN BED AND HAS BEEN UP AD HELIO IN HER ROOM. PT HAS REQUIRED ONE DOSE OF DILAUDID IV FOR INCREASED ABDOMINAL PAIN. PT VITAL SIGNS STABLE, ON RA. ADEQUATE URINE OUTPUT, NO BOWEL MOVEMENTS. NO OTHER CONCERNS NOTED, WILL WAIT FOR PT TO RETURN TO FLOOR.
--- NOTE | 2016-05-15 14:17 | NUR ---
LEFT FLOOR PT LEFT THE FLOOR AT THIS TIME VIA BED, ACCOMPANIED BY PRE-OP STAFF. NO CONCERNS NOTED.
[2016-05-15] MEDS ORDERED: DEXTROSE 50% IV ONE (14:30)
[2016-05-15] MEDS ORDERED: PROPOFOL 200mg 20 ML IV ONE (15:06)
[2016-05-15] MEDS ORDERED: ROCURONIUM 50mg/5ml INJECTION IV ONE ×2 (15:06→17:01)
[2016-05-15] MEDS ORDERED: GLYCOPYRROLATE 0.4mg/2ml INJECTION ONE (15:07)
[2016-05-15] MEDS ORDERED: NEOSTIGMINE 10mg/10ml INJECTION ONE (15:07)
[2016-05-15] MEDS ORDERED: LIDOCAINE 2% (20mg/ml) 5ml PF SDV ONE (15:09)
[2016-05-15] MEDS ORDERED: HYDROMORPHONE 2mg/ml INJECTION ONE (15:13)
[2016-05-15] MEDS ORDERED: FENTANYL 250mcg/5ml INJECTION ONE (15:13)
[2016-05-15] MEDS ORDERED: MIDAZOLAM 2mg/2ml INJECTION ONE (15:13)
[2016-05-15] MEDS ORDERED: PIPERACILLIN/TAZOBACTAM 3.375 G in NORMAL SALINE 100 ML IV ONE (15:57)
[2016-05-15] MEDS ORDERED: DEXAMETHASONE 4mg/ml - 1ml INJECTION ONE (16:36)
[2016-05-15] MEDS ORDERED: ONDANSETRON 4mg/2ml INJECTION ONE (16:36)
--- NOTE | 2016-05-15 18:15 | GSPOSTPROC ---
Immediate Operative Note DATE: 05/15/16 TIME: 18:13 Postop Diagnosis: * Internal hernia - incarcerated * Small bowel obstruction secondary to internal hernia * Intraabdominal adhesions * Small bowel stricture of ileum Surgery Type: Open Surgical Procedure: Other (Exploratory laparotomy, lysis of adhesions x 40 minutes, reduction of internal hernia, segmental small bowel resection of ileum , incidental appendectomy) Surgeon: Yadi Assisting Surgeon: Gal ASA: 3 KWESI FLORES MD May 15, 2016 18:15
[2016-05-15] MEDS ORDERED: KETOROLAC 30mg/ml INJECTION IV PRN (18:45)
[2016-05-15] MEDS ORDERED: ONDANSETRON 4mg/2ml INJECTION IV PRN (18:45)
[2016-05-15] MEDS ORDERED: PIPERACILLIN/TAZOBACTAM 3.375 G in NORMAL SALINE 100 ML IV SCH (21:00)
[2016-05-16] VITALS (8 sets, daily range): BP systolic 101–127; BP diastolic 63–82; PULSE 76–102; RESP 16–18; TEMP 95.5–99.3; O2SAT 91–95
[2016-05-16] MEDS: HYDROMORPHONE 2mg/ml INJECTION IV PRN ×13 (00:19→19:35)
--- NOTE | 2016-05-16 01:46 | NUR ---
Chart Check 24 hour chart check completed
[2016-05-16] MEDS: NS 500 ML IV PRN (03:25)
[2016-05-16] MEDS: AMPICILLIN/SULBACTAM 3 G in NORMAL SALINE 100 ML IV SCH ×4 (03:32→22:32)
[2016-05-16] MEDS: LR 1,000 ML IV SCH ×2 (03:33→14:15)
--- NOTE | 2016-05-16 06:23 | NUR ---
SHIFT SUMMARY PATIENT HAS BEEN ALERT AND ORIENTED THIS SHIFT. PATIENT RETURNED TO THE FLOOR FROM SURGERY ON 1L NC, BUT HAS BEEN TITRATED TO ROOM AIR AND VITAL SIGNS HAVE BEEN STABLE. PATIENT HAS REPORTED PAIN FROM 7-9 AND RECEIVED MULTIPLE DOSES OF DILAUDID EVERY 1-2 HOURS. OTHERWISE, PATIENT HAS SLEPT. PATIENT DENIES ANY N/V OR SOA THIS SHIFT. WILL CONTINUE TO MONITOR.
[2016-05-16] MEDS: NICOTINE 21 MG PATCH TD SCH (08:41)
[2016-05-16] MEDS: ENOXAPARIN 40 MG/0.4 ML INJECTION SQ SCH (10:00)
--- NOTE | 2016-05-16 10:00 | NUR ---
Activity Has helped to turn self in bed, then walked well, about 500 feet. Tolerates well, now up in chair. Son with patient.
--- NOTE | 2016-05-16 14:28 | OPNOTEF ---
DATE OF OPERATION 05/15/2016 SURGEON Antolin Grullon MD ENROLLMENT MANAGEMENT MANAGER Hussein Santo MD PREOPERATIVE DIAGNOSIS Small bowel obstruction. POSTOPERATIVE DIAGNOSES 1. Incarcerated internal hernia. 2. Small bowel obstruction secondary to incarcerated inguinal hernia. 3. Intraabdominal adhesions. 4. Small bowel stricture of the ileum. PROCEDURE 1. Exploratory laparotomy. 2. Reduction of internal hernia. 3. Lysis of adhesions times 40 minutes. 4. Segmental small bowel resection of ileum. 5. Incidental appendectomy. ANESTHESIA General ASA CLASS 3 INDICATIONS The patient is a 45-year-old female who was hospitalized on 05/12/2016 for a small bowel obstruction. She underwent attempted conservative management of the bowel obstruction but her obstruction did not resolve with NG tube decompression and bowel rest. Because it had been 72 hours it was recommended that she undergo exploratory laparotomy. FINDINGS The area of obstruction of the small bowel was in the ileum. There was an adhesive band of omentum to the mesentery of the ileum that led to an internal hernia. There was a transition point at the level of the bowel that was contained in the hernia defect. This same area had a stricture proximally that did not allow good passage of the enteric contents through the region so this segmental small bowel resection was determined to be beneficial. There were also extensive interloop adhesions of the small bowel and mesentery in the area of the ileum as well as in the jejunum with another area of affected bowel loops. All of these adhesions were divided. No other abnormalities on abdominal exploration were noted. DESCRIPTION OF PROCEDURE After informed consent was obtained, the patient was taken to the operating room and placed in the supine position. General endotracheal anesthesia was administered. The patient's abdomen was then prepped and draped in usual sterile fashion. A lower midline incision was then made with a 10 blade scalpel. The incision extended up and around the umbilicus and a few centimeters superior to the umbilicus. Electrocautery was used to dissect down through the subcutaneous tissue to the level of the fascia. The umbilical stalk was dissected free circumferentially and was divided at its base. There was a tiny umbilical hernia that contained preperitoneal fat. The fascia was then divided from the hernia defect both superiorly and inferiorly. A finger was inserted and was used to protect the underlying abdominal contents. Once the abdomen was able to be opened the adhesive band was noted that was causing the internal hernia. The band was ligated with clamps and divided with scissors. The ends of the omentum were then secured with sutures. This allowed for reduction of the internal hernia. Further inspection of the region showed additional scar tissue. It was felt that adhesiolysis needed to be performed given the configuration of the bowel. An Pavan wound protector was inserted and the small bowel from the right lower quadrant was delivered through the wound. Metzenbaum scissors were used to divide the adhesions between the bowel loops and the portions of the mesentery. The tongue of omentum that had led to the adhesive band was densely adherent to one of the bowel loops and this was from the bowel loop by clamping the omentum and ligating it and then dividing the omentum from just beyond the serosa of the bowel. This area of the adhesive band was then sent to pathology for analysis. With the adhesions divided in the right lower quadrant, it was felt that the appendix should be removed since they were only a few inches away from the area of significant adhesions. It was thought that adhesions may recur and make any future appendectomy difficult. The mesoappendix was divided at the base of the appendix to create a window. The appendix was then crushed and ligated with 3-0 Vicryl suture. It was divided at the area where it had been crushed and the mesoappendix was then clamped and divided with scissors. The mesoappendix was ligated with 3-0 Vicryl ties and hemostasis was assured. A pursestring suture of 3-0 Vicryl was formed around the stump of the appendix and the area was inverted before tightening the pursestring suture. With the pursestring suture secured, the appendix was passed off to be sent to pathology. The small bowel was then run from the ligament of Treitz to the ileocecal valve. The colon had been evaluated by palpation. The liver had also been evaluated by palpation. The NG tube that had been in place was removed from suction and withdrawn. This was because the proximal small bowel was decompressed as was the stomach. On inspection of the bowel, the stricture was noted. Contents of the bowel were attempted to be milked through the stricture and there was fairly significant resistance to flow of the enteric contents. Because of this, it was felt that a segmental small bowel resection should be performed to eliminate the area of stricture. The sites of proximal and distal resection were identified just proximal to the stricture and just distal to an area of dense adhesions on the surface of the serosa of the bowel. This led to resection of about six inches of small bowel at the terminal ileum. A window was made in the mesentery and the bowel was divided at the selected sites with a linear cutting stapler. The mesentery was then divided between clamps and ligated with 0 Vicryl ties. The two ends of the bowel were encircled with sterile towels to prevent any spillage. Prior to this, irrigation of the abdomen and suctioning of the fluid had been performed to look for any other abnormalities. There was no evidence of bleeding or other problems. The corners of the staple lines were then removed on the antimesenteric portion of the bowel. The contents of the bowel had been milked away from the divided ends and were held out of the area of anastomosis by atraumatic bowel clamps. The linear cutting stapler was then used to create the common channel of the anastomosis by placing one side of the stapler in each bowel loop and firing the stapler along the antimesenteric portion of the bowel in a [id number], functional end-to-end fashion. The staple lines at the common enterotomy were then offset and elevated with Allis clamps. The common enterotomy was closed with a firing of a TX-60B stapler. Was excellent perfusion of the staple line and areas that were bleeding were controlled with Lembert stitches of 3-0 Vicryl. Once hemostasis was assured the anastomosis was palpated. Two 3-0 Vicryl sutures were placed at the crotch of the anastomosis to prevent did bring. The atraumatic bowel clamps were removed and contents flowed easily through the anastomosis. The anastomosis was returned to the right lower quadrant. The greater omentum was laid over the small bowel beneath the incision. After removing my outer gloves, the Pavan wound protector was removed. The entire surgical team changed gown and gloves and the surgical field was redraped. Hemostasis within the subcutaneous tissue was achieved with electrocautery. New instruments, light handles, cautery, and suction were used. The fascia was closed with a running #1 PDS suture with care to incorporate beyond the hernia defect at the umbilicus. The knot of the suture was tacked in the subcutaneous layer using a 3-0 Vicryl suture. The base of the umbilicus is also tacked back to the fascia using a 3-0 Vicryl suture. The skin was then closed with skin tamara. Sterile dressings were applied. The patient tolerated the procedure well. She was awakened, extubated and transferred to the recovery area in stable condition. DACIA
--- NOTE | 2016-05-16 15:15 | NUR ---
Ambulates well with one standby assist. Son with patient.
--- NOTE | 2016-05-16 18:00 | NUR ---
Continues to have major pain, but ambulates well, does well with IS today. Moves self well.
[2016-05-16] MEDS: OXYCODONE I.R. 5 MG TABLET PO PRN (21:30)
[2016-05-16] MEDS: ACETAMINOPHEN 500 MG TABLET PO SCH (21:30)
[2016-05-16] MEDS: ONDANSETRON 4mg/2ml INJECTION IV PRN (21:45)
--- NOTE | 2016-05-16 22:00 | NUR ---
JUAN WAS DC'D BETWEEN [id number] PER VALERI HARDING RN FROM DAY SHIFT. COULD NOT SEE IT CHARTED. PT HAS TRIED SEVERAL TIMES TO URINATE, THINKING SHE COULD GO AND HAS NOT. PT NOT NECESSARILY UNCOMFORTABLE IN BLADDER, EXPLAINED CHECKING BLADDER WITH SCANNER AND CALLING DR IF THIS CONTINUES. PT HAS ALSO TRIED TO URINATE BEFORE AND AFTER WALK. WILL DISCUSS WITH PT'S PRIMARY RN CLEMENTINA YU. Addendum: 05/16/16 at 8298 by ALIZE RAMIRES RN ALSO, WE DO NOT KNOW PT'S OUTPUT FROM 1400 UNTIL JUAN WAS DC'D.
[2016-05-17] VITALS (11 sets, daily range): BP systolic 114–153; BP diastolic 67–93; PULSE 88–103; RESP 12–18; TEMP 96.7–99.3; O2SAT 91–97
[2016-05-17] MEDS: LR 1,000 ML IV SCH ×5 (00:38→22:00)
[2016-05-17] MEDS: ACETAMINOPHEN 500 MG TABLET PO SCH ×3 (01:55→17:02)
[2016-05-17] MEDS: AMPICILLIN/SULBACTAM 3 G in NORMAL SALINE 100 ML IV SCH ×5 (03:47→21:40)
[2016-05-17] MEDS: METOCLOPRAMIDE 10mg/2ml INJECTION IV PRN ×3 (03:47→21:58)
--- NOTE | 2016-05-17 07:35 | NUR ---
SHIFT SUMMARY PATIENT HAS BEEN ALERT AND ORIENTED X3 THIS SHIFT. VITAL SIGNS HAVE BEEN STABLE ON ROOM AIR. PATIENT WAS UNABLE TO REST COMFORTABLY IN THE BED, SO SHE SPENT MOST OF THE NIGHT SLEEPING IN HER RECLINER. AFTER SOME INITIAL BLOATING POST ORAL INTAKE OF WATER AND MEDS, PATIENT HAS EXPRESSED INCREASED COMFORT WITH ORAL PAIN MEDICATION AND HAS NOT REQUESTED ANY SINCE EARLY IN SHIFT. PATIENT AMBULATES SLOW, BUT WELL WITH STAND BY ASSIST. HAS VOIDED MULTIPLE TIMES SINCE CATHETER REMOVAL. WILL CONTINUE TO MONITOR.
--- NOTE | 2016-05-17 08:53 | PNF ---
DATE OF VISIT 05/16/2016 REASON FOR VISIT Postoperative followup. SUBJECTIVE Joi is having expected postoperative pain. Her pain was more out of control after she had taken a very lengthy walk in the halls. She has been taking multiple cups of ice chips without difficulty. She denies any nausea. She has not passed any flatus since surgery. OBJECTIVE VITAL SIGNS: Afebrile with stable vitals. GENERAL: The patient is awake and alert in no acute stress. ABDOMEN: Soft, distended, firm but appropriately tender. Dressing was left in place. ASSESSMENT 1. Postop day #1 status post exploratory laparotomy, lysis of adhesions, and segmental small bowel resection. She does seem to be making appropriate clinical progress. I think her abdominal discomfort is due to distention of the continued dilated small bowel related to expected postoperative ileus. 2. Sinus infection - present on admission. PLAN 1. Discontinue Peters catheter.. 2. The patient was intended to be on scheduled Tylenol. However, the entry day for orders was misentered to correspond to this evening as a start time. Tylenol will be started at 10 p.m. 3. I will start her on clear liquid diet sparingly and limited to noncarbonated liquids. MTDD
[2016-05-17] MEDS: ENOXAPARIN 40 MG/0.4 ML INJECTION SQ SCH (09:12)
[2016-05-17] MEDS: NICOTINE PATCH REMOVAL TD SCH (09:12)
[2016-05-17] MEDS: NICOTINE 21 MG PATCH TD SCH (09:12)
[2016-05-17] MEDS: OXYCODONE I.R. 5 MG TABLET PO PRN ×3 (10:31→21:59)
[2016-05-17] MEDS: ONDANSETRON 4mg/2ml INJECTION IV PRN (10:31)
--- NOTE | 2016-05-17 10:33 | NUR ---
CM CM IN TO VISIT WITH PT. SHE IS ALERT AND ORIENTED. MOVEMENT IS PAINFUL. HER SON IS PRESENT. PT PLANS TO DC HOME. AT THIS TIME SHE IS UNSURE IF SHE WILL NEED HHS. CM REASSURES THAT SHE WILL CONTINUE TO FOLLOW AND ASSESS FOR DC NEEDS.
--- NOTE | 2016-05-17 14:16 | NUR ---
Nausea Pt reporting nausea at this time. Pt stated "I would like something for the nausea and then want to get up to the BR and walk in the hallway after." 10mg PRN Reglan IV given at this time. Pt to ambulate in the hallway.
--- NOTE | 2016-05-17 16:00 | NUR ---
STATUS RN IN ROOM TO ASSIST PATIENT TO RESTROOM. RN INFORMED PATIENT SHE NEEDED TO AMBULATE FOR THE THIRD TIME TODAY. PATIENT STATES,"I JUST CAN'T, MY STOMACH DOES NOT FEEL GOOD RIGHT NOW." RN ENCOURAGED PATIENT TO AMBULATE. PATIENT ONCE AGAIN INFORMED RN SHE COULD NOT AMBULATE AT THIS TIME. RN ASSISTED PATIENT BACK TO BED AND INSTRUCTED PATIENT TO USE INCENTIVE SPIROMETER IF SHE WASN'T GOING TO WALK. PATIENT REFUSED TO USE INCENTIVE SPIROMETER. RN EDUCATED PATIENT ON IMPORTANCE OF AMBULATION AND USE OF THE INCENTIVE SPIROMETER. PATIENT VERBALIZED UNDERSTANDING. BED IN LOWEST POSITION, CALL LIGHT WITHIN REACH, SIDE RAILS UP X2, SCD TO BILATERAL LOWER EXTREMITIES. NAVA OLIVIER RN (PRIMARY NURSE) NOTIFIED OF THE ABOVE.
--- NOTE | 2016-05-17 18:21 | NUR ---
Summary Pts VS have been stable on RA. Pt has been assisted to the BR multiple times today with adequate output. No BM. Pt has been up to recliner throughout shift. Pt has been encouraged by this RN to ambulate in hallway and the use of her incentive spirometer. Pts family has been present in the room off and on this shift. Isis Anderson, BALTAZAR asked Pt to ambulate at this time, Pt stated "I will walk in about 20 minutes." Side rails up X2, call light w/in reach, bed alarm on.
[2016-05-18] MEDS: ACETAMINOPHEN 500 MG TABLET PO SCH ×3 (01:11→17:09)
--- NOTE | 2016-05-18 02:34 | NUR ---
Chart Check 24 hour chart check completed
[2016-05-18] MEDS: AMPICILLIN/SULBACTAM 3 G in NORMAL SALINE 100 ML IV SCH ×3 (02:52→15:13)
[2016-05-18] MEDS: ONDANSETRON 4mg/2ml INJECTION IV PRN (03:04)
--- NOTE | 2016-05-18 04:56 | NUR ---
STATUS PATIENT A/OX3.PATIENT C/O PAIN AT ABD ,RATED 6/10. PRN NORCO WAS GIVEN.PATIENT C/O NAUSEA ,NO EMESIS .PRN REGLAN AND ZOFRAN WAS GIVEN. PATIENT WALKED ONE TIME WITH RN STANDBY ASSIST ON [place] LE[place] DURING NIGHT. NO BM. PATIENT IS ABLE TO SLEEP OFF AND ON BETWEEN CARES. ON CLEAR LIQUID DIET. ON ROOM AIR. DENIES CHEST PAIN,SOB. BED IN LOW POSITION. CALL LIGHT WITHIN REACH . CONTINUE TO MONITOR. Addendum: 05/18/16 at 0514 by MURPHY LANGLEY RN PRN ROXICODONE WAS GIVEN FOR PAIN. NOT NORCO.
[2016-05-18 07:22] VITALS: BP 137/67; PULSE 92; RESP 18; TEMP 98.6; O2SAT 98
[2016-05-18 07:25] VITALS: PULSE 94; RESP 18
--- NOTE | 2016-05-18 07:25 | PNF ---
DATE OF VISIT 05/17/2016 REASON FOR VISIT Postoperative followup. SUBJECTIVE Joi is continuing to have abdominal pain. She had some nausea develop. She has been walking some but nursing has been trying to encourage her to walk more due to a low grade temp. She has also been refusing to do her incentive spirometer. She continues to have abdominal pain. She says that she is not sleeping well. She has been voiding but has not passed flatus or had a bowel movement. OBJECTIVE VITALS: Afebrile with stable vitals on room air. GENERAL: The patient is awake and alert. She is in mild distress secondary to pain. ABDOMEN: Soft, distended, appropriately tender. Her incision is clean, dry and intact and her dressing was changed. ASSESSMENT Postop day #2 status post exploratory laparotomy, lysis of adhesions, and segmental small bowel resection. She continues to have unexpected postoperative ileus. PLAN 1. Continue IV fluids since oral intake is limited. 2. Continue with sparing clear liquids since she had nausea today. MTDD
[2016-05-18] MEDS: METOCLOPRAMIDE 10mg/2ml INJECTION IV PRN (08:04)
[2016-05-18] MEDS: OXYCODONE I.R. 5 MG TABLET PO PRN (08:30)
[2016-05-18] MEDS: NICOTINE 21 MG PATCH TD SCH (09:43)
[2016-05-18] MEDS: NICOTINE PATCH REMOVAL TD SCH (09:43)
[2016-05-18] MEDS: ENOXAPARIN 40 MG/0.4 ML INJECTION SQ SCH (09:44)
[2016-05-18] MEDS: LR 1,000 ML IV SCH ×2 (10:12→20:02)
--- NOTE | 2016-05-18 10:21 | NUR ---
NICK ROMERO IN TO VISIT PATIENT TODAY. SHE REPORTS SHE IS STILL HAVING PAIN SHE RATES 6/10 WITH NAUSEA. PATIENT HAS NEEDED IV REGLAN AND ZOFRAN FOR NAUSEA AND IS TAKING PAIN PILLS BY MOUTH. PATIENT DENIES NEEDS AND PLANS TO DC TO HOME. REQUEST PATIENT CALL IF NEEDS ARISE.
[2016-05-18 15:41] VITALS: BP 128/87; PULSE 96; RESP 16; TEMP 97.4; O2SAT 98
--- NOTE | 2016-05-18 18:20 | NUR ---
Summary Pts VS stable on RA. Pt has ambulated x4 today and tolerated well. Pt has been assisted to the BR multiple times with adequate output. No BM. Some nausea this shift, still not much of an appetite at this time. Pts family has been present in room throughout shift. Pt in recliner off and on this shift. Up to recliner at this time, call light w/in reach.
[2016-05-18] MEDS ORDERED: BISACODYL 10 MG SUPPOSITORY RECTALLY PRN (18:30)
[2016-05-18] MEDS ORDERED: IBUPROFEN 800 MG TABLET PO PRN (18:30)
[2016-05-18 19:26] VITALS: BP 137/82; PULSE 92; RESP 16; TEMP 99; O2SAT 96
[2016-05-18 20:00] VITALS: PULSE 79; RESP 16
[2016-05-19] VITALS (8 sets, daily range): BP systolic 123–142; BP diastolic 79–90; PULSE 79–102; RESP 16–18; TEMP 97.7–99.1; O2SAT 94–96
[2016-05-19] MEDS: ACETAMINOPHEN 500 MG TABLET PO SCH ×3 (01:09→17:52)
[2016-05-19 05:40] LABS: BASOPHILS # (AUTO) 0.1 T/MM3 (0-0.2); BASOPHILS % (AUTO) 0.7 % (0-2); EOSINOPHILS # (AUTO) 0.2 T/MM3 (0-0.5); EOSINOPHILS % (AUTO) 3.1 % (0-4); IMMATURE GRANULOCYTE # (AUTO) 0.02 T/MM3 (0.00-0.03); IMMATURE GRANULOCYTE % (AUTO) 0.3 % (0.0-0.5); LYMPHOCYTES # (AUTO) 0.9 T/MM3 (1-4.8); LYMPHOCYTES % (AUTO) 11.9 % (23-45); MEAN CORPUSCULAR HGB 30.4 UUG (26-34); MEAN CORPUSCULAR HGB CONC(MCHC 33.3 GM/DL (31-37); MEAN CORPUSCULAR VOLUME 91.2 UM3 (80-100); MEAN PLATELET VOLUME 9.4 UM3 (9.4-12.4); MONOCYTES # (AUTO) 0.8 T/MM3 (0-0.8); MONOCYTES % (AUTO) 10.1 % (0-9.0); NEUTROPHILS #(AUTO)-ABSOLUTE 5.7 T/MM3 (1.8-7.7); NEUTROPHILS % (AUTO) 73.9 % (33-66); RED BLOOD COUNT 3.62 M/MM3 (4.00-5.20); WBC - WHITE BLOOD COUNT 7.6 T/MM3 (4.5-11.0)
[2016-05-19 05:41] LABS: ANION GAP 12 MEQ/L (5-15); BUN/CREATININE RATIO 10 RATIO (6-26); CALCIUM 8.2 MG/DL (8.4-10.2); CHLORIDE 103 MEQ/L (98-107); CO2 - CARBON DIOXIDE 26 MEQ/L (22-30); CREATININE 0.4 MG/DL (0.7-1.2); GLOMERULAR FILTRATION RATE 174; GLUCOSE 100 MG/DL (65-110); POTASSIUM 3.2 MEQ/L (3.6-5); SODIUM 141 MEQ/L (134-144)
[2016-05-19] MEDS: LR 1,000 ML IV SCH ×2 (07:30→18:09)
[2016-05-19] MEDS: NICOTINE 21 MG PATCH TD SCH (09:20)
[2016-05-19] MEDS: NICOTINE PATCH REMOVAL TD SCH (09:21)
[2016-05-19] MEDS: ENOXAPARIN 40 MG/0.4 ML INJECTION SQ SCH (09:21)
--- NOTE | 2016-05-19 09:27 | NUR ---
SHIFT REPORT ALERT/ORIENTED X3. VSS ON ROOM AIR. PT AMBULATED THE HALLS X1 THIS SHIFT. PT TOOK TYLENOL ONLY FOR PAIN. PT HAS AMBULATED TO THE BATHROOM SEVERAL TIMES, AND HAD 3 BMS. NO NAUSEA/VOMITING THIS SHIFT. DRINKING CLEAR UNCARBONATED FLUIDS. PTS STAYED AT BEDSIDE THROUGHOUT THE NIGHT. PT REPORTED FEELING BETTER THIS MORNING. WILL CONTINUE TO MONITOR.
--- NOTE | 2016-05-19 09:34 | NUR ---
CM CM IN TO VISIT WITH PT. SHE IS ALERT AND ORIENTED. SHE WAS WITNESSED BY THIS CM TO AMBULATE IN THE [place] WITH STAND BY ASSIST. PT DENIES DC NEEDS. SHE PLANS TO RETURN HOME. HER LACE SCORE IS 10. NO FURTHER INTERVENTION NEEDED.
--- NOTE | 2016-05-19 09:42 | PNF ---
DATE OF VISIT 05/18/2016 REASON FOR VISIT Postoperative followup. SUBJECTIVE Joi has been walking more. She did have an episode of emesis. She has been sitting in the chair more. She last used Roxicodone earlier this morning and has been trying to use the Tylenol for pain control. She does not have an appetite. She has not been passing gas or stool yet. OBJECTIVE VITAL SIGNS: Afebrile with stable vitals on room air. GENERAL: The patient is awake and alert. She is in no acute distress. She is seated in a chair. ABDOMEN: Soft, appropriately tender. ASSESSMENT 1. Postop day #3 status post exploratory laparotomy, lysis of adhesions, and segmental small bowel resection. Still no clinical sign of return of bowel function. 2. Sinus infection - completed treatment. PLAN 1. Discontinue antibiotics which were treatment for sinus infection. 2. Add oral ibuprofen and discontinue Toradol since Toradol was not being utilized by the nurses. 3. Decrease IV fluids to 100 ml/hour. 4. The patient requested a suppository to try to stimulate bowel function. 5. Check lab in the morning to verify electrolytes are not contributing to ileus. EARLENED
--- NOTE | 2016-05-19 12:33 | NUR ---
Nutrition Risk R/T NPO or Clear Liquids > 3 days while in the hospital Diet Order: Clear Liquid No carbonated beverages. No tray Nursing to provide 8 oz q [address] spoke with RN who reports pt just threw up again, however RN states pt has + Bowel Sounds and has had Bowel Movements and passing gas since 04/[address] recommend to RN to offer pt Boost Breeze for additional calories and protein from clear liquids. If pt's po intake remains inadequate pt may benefit form alternate route of nutrition until adequate po intake is achieved. RD available at [id number]
--- NOTE | 2016-05-19 15:41 | PNF ---
DATE OF VISIT 05/19/2016 REASON FOR VISIT Postoperative followup. SUBJECTIVE Joi is feeling a little bit better today. She has had three bowel movements since her suppository. She says she is passing much more flatus. Her abdominal pain is improving and she has been controlling her pain with only scheduled Tylenol. She had a bout of emesis but this was after coughing. SUBJECTIVE Vitals: Temperature 99.1. Other vital signs stable on room air. GENERAL: The patient is awake, alert, in no acute distress. ABDOMEN: Soft, mildly distended, appropriately tender. Her incision is clean, dry and intact. ASSESSMENT Postop day #4 status post exploratory laparotomy, lysis of adhesions, and segmental small bowel resection. She is starting to have return of bowel function clinically. PLAN 1. Advance to full liquid diet per the patient's request. I did caution her to avoid too much oral intake. 2. Replace potassium orally. 3. Continue slow diet advance. 4. May shower. 5. Dr. Santo will be covering for the weekend until I return on Sunday. Discharge orders are started in the computer if she is ready for dismissal prior to Sunday. DACIA
--- NOTE | 2016-05-19 18:12 | NUR ---
STATUS PT A/O X3. UP WITH ASSIST OF ONE WITH STANDBY. PT AMBULATED X3 IN HALLS WITH NURSING STAFF. PT ON RA, TOLERATING WELL. SHOWERED WITH HIBACLEANSE. HAD ONE EPISODE OF EMESIS AFTER COUGHING BUT PT DENIES NAUSEA. PAIN RATED HIGHEST AT A 2/10, DENIES NEED FOR PRN PAIN MEDICATION. PPT TOLERATING FULL LIQUID DIET WELL. ADEQUATE OUTPUT. PT RESTING IN BED WITH FAMLIY IN ROOM. CALL LIGHT WITHIN REACH. BED ALARM ON. WILL CONTINUE TO MONITOR.
[2016-05-20] VITALS: BP 141/94; PULSE 76; RESP 18; TEMP 98; O2SAT 96
[2016-05-20] MEDS: ACETAMINOPHEN 500 MG TABLET PO SCH ×2 (02:55→09:05)
[2016-05-20 04:00] VITALS: BP 134/88; PULSE 81; RESP 18; TEMP 98.1; O2SAT 97
[2016-05-20] MEDS: LR 1,000 ML IV SCH ×2 (05:49→11:04)
[2016-05-20 07:30] VITALS: PULSE 81; RESP 18
[2016-05-20 07:38] VITALS: BP 145/87; PULSE 78; RESP 16; TEMP 98.1; O2SAT 96
--- NOTE | 2016-05-20 07:38 | NUR ---
SHIFT REPORT PT A/O X3. VSS ON ROOM AIR. UP X1 STANDBY ASSIST. INCONTINENT OF BOWELS X1 THIS SHIFT. DENIES N/V. NO PAIN THIS SHIFT. DENIES NEED FOR PRN PAIN MEDICATION. TOLERATING FULL LIQUID DIET WELL. ADEQUATE INTAKE/OUTPUT. SEVERAL STOOLS. ABDOMINAL DRESSING CDI. SLEPT WELL THROUGHOUT THE NIGHT. CALL LIGHT WITHIN REACH. BED ALARM ON. WILL CONTINUE TO MONITOR.
[2016-05-20] MEDS: NICOTINE 21 MG PATCH TD SCH (09:00)
[2016-05-20] MEDS: ENOXAPARIN 40 MG/0.4 ML INJECTION SQ SCH (09:05)
[2016-05-20] MEDS: NICOTINE PATCH REMOVAL TD SCH (09:05)
--- NOTE | 2016-05-20 12:00 | NUR ---
STATUS PT UP WITH STAND BY ASSIST IN ROOM. STATES SHE ONLY WANTS TO TAKE NON-NARCOTIC MEDS FOR PAIN IF POSSIBLE. TOLERATING FOOD/DRINK WITHOUT N/V.
[2016-05-20 12:07] VITALS: BP 124/82; PULSE 66; RESP 16; TEMP 98.6; O2SAT 95
--- NOTE | 2016-05-20 13:24 | PNF ---
DATE 05/20/2016 HISTORY The patient is doing well. She is tolerating a full-liquid diet. She is having bowel movements. She is ambulating well. She has good pain control with Tylenol. The patient would like to be dismissed today. PHYSICAL EXAMINATION VITAL SIGNS: Temperature is 98.1 degrees oral. Pulse is 78. Respiratory rate is 16. Blood pressure is 145/87. Oxygen saturation is 96% on room air. ABDOMEN: The abdominal incision looks good. The abdomen is soft. IMPRESSION Doing well following exploratory laparotomy, reduction of internal hernia, lysis of adhesions, segmental small bowel resection with primary anastomosis, and incidental appendectomy on 05/15/2016. PLAN Dismiss patient from [facility] today. The patient does believe she can have good pain control at home with the use of Tylenol. She declines an offer for a prescription for narcotic analgesics at this time. The patient will advance her diet further as tolerated to regular diet at home following discharge. DACIA
--- NOTE | 2016-05-20 14:25 | NUR ---
DISMISSAL WENT OVER WRITTEN DISMISSAL INSTRUCTIONS WITH PT AND PT'S FAMILY INCLUDING POST OP ACTIVITY/RESTRICTIONS, MEDS, DIET,F/U APPT, S/SX TO REPORT. ALL VERBALIZED UNDERSTANDING. NO SCRIPTS OR HOME MEDS TO BE GIVEN TO PT. 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 PT TAKEN OUT OF [facility] PER W/C BY [facility] STAFF TO FRONT ENTRANCE FOR TRANSPORT HOME BY FAMILY.
--- NOTE | 2016-05-23 11:56 | DSF ---
ATTENDING PHYSICIAN Antolin Grullon MD REASON FOR ADMISSION Small bowel obstruction. DISCHARGE DIAGNOSES 1. Internal hernia related to adhesive band with incarcerated small bowel. 2. Small bowel obstruction related to incarcerated internal hernia. 3. Small bowel stricture of the ileum. 4. Recent sinus infection - present on admission. CONSULTATIONS None. PROCEDURES The patient underwent exploratory laparotomy with reduction of internal hernia, lysis of adhesions x 40 minutes, segmental small bowel resection of ileum, and incidental appendectomy on 05/15/[address] Grullon with the assistance of Dr. Santo. BRIEF HOSPITAL COURSE The patient was admitted after ER evaluation had shown a small bowel obstruction. She had an NG tube placed and was initially managed conservatively with NG tube decompression and IV fluids along with bowel rest. On hospital day #2 she was doing slightly better but clinically had ongoing bowel obstruction. On hospital day #3 her pain was improving and she had had slight flatus. On hospital day #4 she had still not opened up and imaging showed significant ongoing dilation. She was then taken to the operating room on 05/15/2016 (that evening) and had operations as above. Postoperatively, the patient was slowly advanced with regards to diet. She was originally only at sips of water and ice chips. On postop day #2 her IV fluids were continued since she was still only taking minimal liquids. On postop day #3 her IV fluids were decreased and she had a suppository that was successful in stimulating bowel function. Her IV antibiotics of Unasyn that was for treatment of her ongoing sinus infection were stopped since her treatment course was completed. On postop day #4 she was advanced to a full liquid diet. On postop day #5 she was doing well enough to be dismissed home. DISPOSITION Home by private vehicle. CONDITION ON DISCHARGE Good. DISCHARGE INSTRUCTIONS Diet: Advance to regular diet as tolerated. Wound Care: The patient was instructed not to soak her incision until tamara were removed. Dressings were optional. Activity: She was advised to avoid any heavy pushing, pulling, straining, or lifting over 15 pounds for a month after surgery. Followup: The patient should follow up with Dr. Grullon two weeks after surgery for staple removal. Medications: See discharge medical reconciliation. [facility]
== END 2016-05-20 14:25 | disposition home or self-care (01) | DRG 331 ==
LOC: ED 12:34 → EDHOLD 17:32 → SRG 18:00
PROVIDERS: ADMIT Surgery; ATTEND Surgery
PROC: 0DBB0ZZ Excision of Ileum, Open Approach (ICD-10-PCS; 2016-05-15)
PROC: 0DNW0ZZ Release Peritoneum, Open Approach (ICD-10-PCS; 2016-05-15)
PROC: 0DTJ0ZZ Resection of Appendix, Open Approach (ICD-10-PCS; 2016-05-15)
PROC: 0WQF0ZZ Repair Abdominal Wall, Open Approach (ICD-10-PCS; principal; 2016-05-15 16:11)
DX: K46.0 Unspecified abdominal hernia with obstruction, without gangrene (principal); K66.0 Peritoneal adhesions (postprocedural) (postinfection); E86.0 Dehydration; F41.9 Anxiety disorder, unspecified; F17.210 Nicotine dependence, cigarettes, uncomplicated; J32.9 Chronic sinusitis, unspecified; Z79.899 Other long term (current) drug therapy
CPT/HCPCS: 36415; 80048; 80053; 81003; 82948; 83690; 85025; 96361; 96374; 96375; 99406